=== PATIENT | male | born 1960 | race Caucasian/White ===

== ENCOUNTER 2018-05-06 14:05 | Emergency (ER) | payer MEDICARE, SELFPAY ==
--- NOTE | 2018-05-06 14:05 | DT_ITS ---
This patient was seen during an EMR downtime April 30, 2018 - May 07, 2018. This patient may have a combination of paper and electronic documentation or all paper documentation. All documentation is viewable within the e-chart portion of [facility] for each patient visit.
--- NOTE | 2018-05-06 16:30 | RAD_ITS ---
STUDY: X-RAY - LUMBAR SPINE REASON FOR EXAM: Male, 58 years old. Back pain after fall TECHNIQUE: 3 view(s) of the lumbar spine were obtained. COMPARISON: None FINDINGS: Diffuse osteopenia noted. L1 vertebral body compression fracture of indeterminate age noted. Multilevel facet arthrosis. Hypertrophy of this process processes. Vascular calcifications. Degenerative changes of the sacroiliac joints. Overlying bowel gas limits assessment of the sacrum. IMPRESSION: L1 vertebral body compression fracture of indeterminate age. Diffuse osteopenia and spondylotic changes. Electronically Signed: Agustin Paulson, at 15:26 EDT Tel , Service support , RAD/Lumbar Spine 2 or 3 Views
== END 2018-05-06 15:40 | disposition home or self-care (01) ==
PROVIDERS: Emergency Provider Emergency Medicine; Family Provider Family Medicine; PCP Family Medicine
DX: M54.5 Low back pain (principal); G89.29 Other chronic pain; W07.XXXA Fall from chair, initial encounter; Y93.9 Activity, unspecified; Y92.59 Other trade areas as the place of occurrence of the external cause; Y99.9 Unspecified external cause status; Q60.0 Renal agenesis, unilateral
CPT/HCPCS: 72100; 99282